=== PATIENT | female | born 1945 | race Hispanic/Latino ===

== ENCOUNTER 2019-03-19 08:53 | Inpatient (IN) | payer MEDICARE, OTHER ==
[~2019-03-19] VITALS: Ht 160 cm; Wt 76.2 kg
[~2019-03-19 08:53] MED LIST: ADALAT CC30 MG PO; ASPIR 8181 MG PO; CATAPRES0.1 MG PO; FUROSEMIDE80 MG PO; LORADINE PO; LORAZEPAM0.5 MG PO; METOPROLOL SUCC50 MG PO; MINOXIDIL10 MG PO; NOVALOG; SIMVASTATIN40 MG PO
--- OUTSIDE RECORDS SUMMARY | 2019-03-19 08:56 | XMS REPORT ---
[facility] Address Unknown Phone Unavailable Care Team Providers Care Rack Puller Name Role Phone Unavailable Unavailable Payers Payer Name Policy Type Policy Number Effective Date Expiration Date Problems This patient has no known problems. Allergies, Adverse Reactions, Alerts Allergy Name Allergy Type Status Severity Reaction(s) Onset Date Inactive Date Treating Clinician Comments No Known Allergies DA Active U 2018-10-25 00:00:00 No Known Allergies DA Active U 2016-11-06 00:00:00 Medications This patient has no known medications. Results Test Description Test Time Test Comments Text Results Atomic Results Result Comments GLUBED 2018-11-27 12:50:00 GLUBED (test code=GLUBED) 119 mg/dL 74-106 Performed by certified slurry tank operator at [facility]) [id number] 12:50:00* Test Item Value Reference Range Comments GLUBED (test code=GLUBED) 153 mg/dL 74-106 Performed by certified slurry tank operator at [facility]) [id number] 12:50:00* Test Item Value Reference Range Comments GLUBED (test code=GLUBED) 113 mg/dL 74-106 Performed by certified slurry tank operator at [facility]) [id number] 12:49:00* Test Item Value Reference Range Comments GLUBED (test code=GLUBED) 165 mg/dL 74-106 Performed by certified slurry tank operator at [facility]) [id number] 12:27:00* Test Item Value Reference Range Comments GLUBED (test code=GLUBED) 177 mg/dL 74-106 Performed by certified slurry tank operator at [facility]) [id number] 10:37:00* Test Item Value Reference Range Comments GLUBED (test code=GLUBED) 173 mg/dL 74-106 Performed by certified slurry tank operator at [facility]) [id number] 17:26:00* Test Item Value Reference Range Comments GLUBED (test code=GLUBED) 121 mg/dL 74-106 Performed by certified slurry tank operator at [facility]) BASIC METABOLIC [id number] 06:38:00* Test Item Value Reference Range Comments SODIUM (test code=NA) 141 mmol/L 136-145 POTASSIUM (test code=K) 4.4 mmol/L 3.5-5.1 CHLORIDE (test code=CL) 104.0 mmol/L 98-107 CARBON DIOXIDE (test code=CO2) 29.0 mmol/L 21-32 ANION GAP (test code=GAP) 12.4 10-20 GLUCOSE (test code=GLU) 110 mg/dL 74-106 BLOOD UREA NITROGEN (test code=BUN) 28 mg/dL 7-18 GLOMERULAR FILTRATION RATE (test code=GFR) 7 mL/min >=60 Estimated GFR by using Modified MDRD formula.Chronic kidney disease is defined as either kidney damageor GFR <60 mL/min/1.73 m2 for >3 months. CREATININE (test code=CREAT) 6.10 mg/dL 0.55-1.02 Note change in reference range due to change in reagent. BUN/CREATININE RATIO (test code=BUN/CREA) 4.6 10-20 CALCIUM (test code=CA) 8.5 mg/dL 8.5-10.1 LIPID PROFILE (CORONARY RISK)2018-10-29 06:38:00* Test Item Value Reference Range Comments TRIGLYCERIDES (test code=TRIG) 104 mg/dL 20-150 CHOLESTEROL (test code=CHOL) 90 mg/dL 0-200 CHOLESTEROL/HDL RATIO (test code=CHOLHDL) 2.0 RATIO 0-4.9 RISK ASSOCIATED WITH CHOL/HDL RATIOS: Risk Male Female1/2 AVERAGE 3.43 3.27AVERAGE 4.97 4.442X AVERAGE 9.55 7.053X AVERAGE 23.39 11.04 REFERENCE VALUE IS RELATED TO RISK LEVELS ASRECOMMENDED BY THE LAMIN. HEART, LUNG, AND BLOOD INST. HDL CHOLESTEROL (test code=HDL) 35 mg/dL 40-60 LIPOPROTEIN LDL (test code=LDL) 44 mg/dL 100-129 Reference Interval: mg/dL mmol/L Optimal <100 <2.6Near/above optimal 100-129 2.6- 3.3Borderline High 130-159 3.4-4.1High 160-189 4.1-4.9Very High >=190 >=4.9=========This LDL result is a direct measurement.========= BASIC METABOLIC [id number] 06:33:00* Test Item Value Reference Range Comments SODIUM (test code=NA) 141 mmol/L 136-145 POTASSIUM (test code=K) 4.4 mmol/L 3.5-5.1 CHLORIDE (test code=CL) 104.0 mmol/L 98-107 CARBON DIOXIDE (test code=CO2) mmol/L 21-32 ANION GAP (test code=GAP) 10-20 GLUCOSE (test code=GLU) mg/dL 74-106 BLOOD UREA NITROGEN (test code=BUN) mg/dL 7-18 GLOMERULAR FILTRATION RATE (test code=GFR) mL/min >=60 CREATININE (test code=CREAT) mg/dL 0.55-1.02 BUN/CREATININE RATIO (test code=BUN/CREA) 10-20 CALCIUM (test code=CA) mg/dL 8.5-10.1 LIPID PROFILE (CORONARY RISK)2018-10-29 06:33:00* Test Item Value Reference Range Comments TRIGLYCERIDES (test code=TRIG) mg/dL 20-150 CHOLESTEROL (test code=CHOL) mg/dL 0-200 CHOLESTEROL/HDL RATIO (test code=CHOLHDL) RATIO 0-4.9 HDL CHOLESTEROL (test code=HDL) mg/dL 40-60 LIPOPROTEIN LDL (test code=LDL) mg/dL 100-129 PROTHROMBIN [id number] 06:15:00* Test Item Value Reference Range Comments PROTHROMBIN TIME PATIENT (test code=PTP) 12.2 seconds 9.0-14.0 INTERNATIONAL NORMAL RATIO (test code=INR) 1.0 0.8-1.2 The therapeutic range for oral anticoagulant therapy formost indications is an international normalized ratio (INR)of between 2.0 and 3.0. The recommended therapeutic INRrange for various clinical situations is listed below: Clinical Situation INR range Pulmonary e mbolism treatment (2.0-3.0)Venous thrombosis treatmentVenous thrombosis prophylaxis (high risk surgery)Prevention of systemic embolism from: Acute myocardial infarction Valvular heart disease Atrial fibrillation Mechanical prosthetic heart valves (2.5-3.5) IS PATIENT ON ANTICOAGULANTS? NTHROMBOPLASTIN TIME [id number] 06:15:00* Test Item Value Reference Range Comments THROMBOPLASTIN TIME PARTIAL (test code=PTT) 29.8 seconds 25.0-36.5 IS PATIENT ON ANTICOAGULANTS? NCBC W/AUTO [id number] 06:12:00* Test Item Value Reference Range Comments WHITE BLOOD CELL (test code=WBC) 9.5 K/mm3 4.5-12.5 RED BLOOD CELL (test code=RBC) 3.76 mill/mm3 3.7-5.2 HEMOGLOBIN (test code=HGB) 11.7 gram/dL 11.5-15.5 HEMATOCRIT (test code=HCT) 38.6 % 36.0-46.0 MEAN CELL VOLUME (test code=MCV) 102.7 fL 80-98 MEAN CELL HGB (test code=MCH) 31.1 picogram 27.0-33.0 MEAN CELL HGB CONCETRATION (test code=MCHC) 30.3 gram/dL 33.0-36.0 RED CELL DISTRIBUTION WIDTH (test code=RDW) 12.8 % 11.6-16.2 RED CELL DISTRIBUTION WIDTH SD (test code=RDW-SD) 47.8 fL 37.0-51.0 PLATELET COUNT (test code=PLT) 262 K/mm3 150-450 MEAN PLATELET VOLUME (test code=MPV) 10.9 fL 6.7-11.0 NEUTROPHIL % (test code=NT%) 58.9 % 39.0-69.0 IMMATURE GRANULOCYTE % (test code=IG%) 0.4 % 0.0-5.0 LYMPHOCYTE % (test code=LY%) 23.0 % 25.0-55.0 MONOCYTE % (test code=MO%) 12.2 % 0.0-10.0 EOSINOPHIL % (test code=EO%) 4.8 % 0.0-5.0 BASOPHIL % (test code=BA%) 0.7 % 0.0-1.0 NUCLEATED RBC % (test code=NRBC%) 0.0 % 0-0 NEUTROPHIL # (test code=NT#) 5.57 K/mm3 1.8-7.7 IMMATURE GRANULOCYTE # (test code=IG#) 0.04 x10 3/uL 0-0.03 LYMPHOCYTE # (test code=LY#) 2.18 K/mm3 1.0-5.0 MONOCYTE # (test code=MO#) 1.15 K/mm3 0-0.8 EOSINOPHIL # (test code=EO#) 0.45 K/mm3 0.0-0.5 BASOPHIL # (test code=BA#) 0.07 K/mm3 0.0-0.2 NUCLEATED RBC # (test code=NRBC#) 0.00 K/mm3 0.0-0.1 CBC W/AUTO [id number] 06:09:00* Test Item Value Reference Range Comments WHITE BLOOD CELL (test code=WBC) K/mm3 4.5-12.5 RED BLOOD CELL (test code=RBC) mill/mm3 3.7-5.2 HEMOGLOBIN (test code=HGB) 11.7 gram/dL 11.5-15.5 HEMATOCRIT (test code=HCT) 38.6 % 36.0-46.0 MEAN CELL VOLUME (test code=MCV) fL 80-98 MEAN CELL HGB (test code=MCH) picogram 27.0-33.0 MEAN CELL HGB CONCETRATION (test code=MCHC) gram/dL 33.0-36.0 RED CELL DISTRIBUTION WIDTH (test code=RDW) % 11.6-16.2 RED CELL DISTRIBUTION WIDTH SD (test code=RDW-SD) fL 37.0-51.0 PLATELET COUNT (test code=PLT) K/mm3 150-450 MEAN PLATELET VOLUME (test code=MPV) fL 6.7-11.0 NEUTROPHIL % (test code=NT%) % 39.0-69.0 IMMATURE GRANULOCYTE % (test code=IG%) % 0.0-5.0 LYMPHOCYTE % (test code=LY%) % 25.0-55.0 MONOCYTE % (test code=MO%) % 0.0-10.0 EOSINOPHIL % (test code=EO%) % 0.0-5.0 BASOPHIL % (test code=BA%) % 0.0-1.0 NEUTROPHIL # (test code=NT#) K/mm3 1.8-7.7 LYMPHOCYTE # (test code=LY#) K/mm3 1.0-5.0 MONOCYTE # (test code=MO#) K/mm3 0-0.8 EOSINOPHIL # (test code=EO#) K/mm3 0.0-0.5 BASOPHIL # (test code=BA#) K/mm3 0.0-0.2 [id number] 06:02:00* Test Item Value Reference Range Comments GLUBED (test code=GLUBED) 105 mg/dL 74-106 Performed by certified slurry tank operator at [facility]) [id number] 15:38:00* Test Item Value Reference Range Comments GLUBED (test code=GLUBED) 139 mg/dL 74-106 Performed by certified slurry tank operator at [facility]) [id number] 11:14:00* Test Item Value Reference Range Comments GLUBED (test code=GLUBED) 142 mg/dL 74-106 Performed by certified slurry tank operator at [facility]) [id number] 16:50:00* Test Item Value Reference Range Comments GLUBED (test code=GLUBED) 145 mg/dL 74-106 Performed by certified slurry tank operator at [facility]) BASIC METABOLIC [id number] 09:27:00* Test Item Value Reference Range Comments SODIUM (test code=NA) 140 mmol/L 136-145 POTASSIUM (test code=K) 4.0 mmol/L 3.5-5.1 CHLORIDE (test code=CL) 104.0 mmol/L 98-107 CARBON DIOXIDE (test code=CO2) 29.0 mmol/L 21-32 ANION GAP (test code=GAP) 11.0 10-20 GLUCOSE (test code=GLU) 111 mg/dL 74-106 BLOOD UREA NITROGEN (test code=BUN) 23 mg/dL 7-18 GLOMERULAR FILTRATION RATE (test code=GFR) 9 mL/min >=60 Estimated GFR by using Modified MDRD formula.Chronic kidney disease is defined as either kidney damageor GFR <60 mL/min/1.73 m2 for >3 months. CREATININE (test code=CREAT) 4.90 mg/dL 0.55-1.02 Note change in reference range due to change in reagent. BUN/CREATININE RATIO (test code=BUN/CREA) 4.7 10-20 CALCIUM (test code=CA) 8.9 mg/dL 8.5-10.1 BASIC METABOLIC [id number] 09:10:00* Test Item Value Reference Range Comments SODIUM (test code=NA) 140 mmol/L 136-145 POTASSIUM (test code=K) 4.0 mmol/L 3.5-5.1 CHLORIDE (test code=CL) 104.0 mmol/L 98-107 CARBON DIOXIDE (test code=CO2) mmol/L 21-32 ANION GAP (test code=GAP) 10-20 GLUCOSE (test code=GLU) mg/dL 74-106 BLOOD UREA NITROGEN (test code=BUN) mg/dL 7-18 GLOMERULAR FILTRATION RATE (test code=GFR) mL/min >=60 CREATININE (test code=CREAT) mg/dL 0.55-1.02 BUN/CREATININE RATIO (test code=BUN/CREA) 10-20 CALCIUM (test code=CA) mg/dL 8.5-10.1 CBC W/AUTO [id number] 08:46:00* Test Item Value Reference Range Comments WHITE BLOOD CELL (test code=WBC) 6.3 K/mm3 4.5-12.5 RED BLOOD CELL (test code=RBC) 3.77 mill/mm3 3.7-5.2 HEMOGLOBIN (test code=HGB) 11.9 gram/dL 11.5-15.5 RESULT VERIFIED BY REPEAT ANALYSIS HEMATOCRIT (test code=HCT) 38.3 % 36.0-46.0 MEAN CELL VOLUME (test code=MCV) 101.6 fL 80-98 MEAN CELL HGB (test code=MCH) 31.6 picogram 27.0-33.0 MEAN CELL HGB CONCETRATION (test code=MCHC) 31.1 gram/dL 33.0-36.0 RED CELL DISTRIBUTION WIDTH (test code=RDW) 13.1 % 11.6-16.2 RED CELL DISTRIBUTION WIDTH SD (test code=RDW-SD) 49.0 fL 37.0-51.0 PLATELET COUNT (test code=PLT) 229 K/mm3 150-450 RESULT VERIFIED BY REPEAT ANALYSIS MEAN PLATELET VOLUME (test code=MPV) 11.0 fL 6.7-11.0 NEUTROPHIL % (test code=NT%) 54.8 % 39.0-69.0 IMMATURE GRANULOCYTE % (test code=IG%) 0.3 % 0.0-5.0 LYMPHOCYTE % (test code=LY%) 21.8 % 25.0-55.0 MONOCYTE % (test code=MO%) 16.6 % 0.0-10.0 EOSINOPHIL % (test code=EO%) 5.9 % 0.0-5.0 BASOPHIL % (test code=BA%) 0.6 % 0.0-1.0 NUCLEATED RBC % (test code=NRBC%) 0.0 % 0-0 NEUTROPHIL # (test code=NT#) 3.46 K/mm3 1.8-7.7 IMMATURE GRANULOCYTE # (test code=IG#) 0.02 x10 3/uL 0-0.03 LYMPHOCYTE # (test code=LY#) 1.38 K/mm3 1.0-5.0 MONOCYTE # (test code=MO#) 1.05 K/mm3 0-0.8 EOSINOPHIL # (test code=EO#) 0.37 K/mm3 0.0-0.5 BASOPHIL # (test code=BA#) 0.04 K/mm3 0.0-0.2 NUCLEATED RBC # (test code=NRBC#) 0.00 K/mm3 0.0-0.1 MANUAL DIFF REQUIRED (test code=MDIFF) NO AB HEPATITIS B [id number] 08:13:00* Test Item Value Reference Range Comments AB HEPATITIS B SURFACE (test code=HBSAB) Reactive () Non Reactive: Inconsistent with immunity, less than 10 mIU/mL Reactive: Consistent with immunity, greater than 9.9 mIU/mLPerformed At: [facility] [address] [id number] Manish Trevino MD Ph:[phone] BASIC METABOLIC [id number] 11:17:00* Test Item Value Reference Range Comments SODIUM (test code=NA) 139 mmol/L 136-145 POTASSIUM (test code=K) 4.9 mmol/L 3.5-5.1 CHLORIDE (test code=CL) 106.0 mmol/L 98-107 CARBON DIOXIDE (test code=CO2) 21.0 mmol/L 21-32 ANION GAP (test code=GAP) 16.9 10-20 GLUCOSE (test code=GLU) 121 mg/dL 74-106 BLOOD UREA NITROGEN (test code=BUN) 64 mg/dL 7-18 GLOMERULAR FILTRATION RATE (test code=GFR) 4 mL/min >=60 Estimated GFR by using Modified MDRD formula.Chronic kidney disease is defined as either kidney damageor GFR <60 mL/min/1.73 m2 for >3 months. CREATININE (test code=CREAT) 9.40 mg/dL 0.55-1.02 Note change in reference range due to change in reagent. BUN/CREATININE RATIO (test code=BUN/CREA) 6.8 10-20 CALCIUM (test code=CA) 8.1 mg/dL 8.5-10.1 CBC W/AUTO [id number] 11:12:00* Test Item Value Reference Range Comments WHITE BLOOD CELL (test code=WBC) 8.5 K/mm3 4.5-12.5 RED BLOOD CELL (test code=RBC) 2.85 mill/mm3 3.7-5.2 HEMOGLOBIN (test code=HGB) 9.4 gram/dL 11.5-15.5 HEMATOCRIT (test code=HCT) 28.9 % 36.0-46.0 MEAN CELL VOLUME (test code=MCV) 101.4 fL 80-98 MEAN CELL HGB (test code=MCH) 33.0 picogram 27.0-33.0 MEAN CELL HGB CONCETRATION (test code=MCHC) 32.5 gram/dL 33.0-36.0 RED CELL DISTRIBUTION WIDTH (test code=RDW) 13.5 % 11.6-16.2 RED CELL DISTRIBUTION WIDTH SD (test code=RDW-SD) 50.5 fL 37.0-51.0 PLATELET COUNT (test code=PLT) 158 K/mm3 150-450 MEAN PLATELET VOLUME (test code=MPV) 12.0 fL 6.7-11.0 NEUTROPHIL % (test code=NT%) 62.5 % 39.0-69.0 IMMATURE GRANULOCYTE % (test code=IG%) 0.4 % 0.0-5.0 LYMPHOCYTE % (test code=LY%) 18.0 % 25.0-55.0 MONOCYTE % (test code=MO%) 15.2 % 0.0-10.0 EOSINOPHIL % (test code=EO%) 3.5 % 0.0-5.0 BASOPHIL % (test code=BA%) 0.4 % 0.0-1.0 NUCLEATED RBC % (test code=NRBC%) 0.0 % 0-0 NEUTROPHIL # (test code=NT#) 5.32 K/mm3 1.8-7.7 IMMATURE GRANULOCYTE # (test code=IG#) 0.03 x10 3/uL 0-0.03 LYMPHOCYTE # (test code=LY#) 1.53 K/mm3 1.0-5.0 MONOCYTE # (test code=MO#) 1.29 K/mm3 0-0.8 EOSINOPHIL # (test code=EO#) 0.30 K/mm3 0.0-0.5 BASOPHIL # (test code=BA#) 0.03 K/mm3 0.0-0.2 NUCLEATED RBC # (test code=NRBC#) 0.00 K/mm3 0.0-0.1 MANUAL DIFF REQUIRED (test code=MDIFF) NO BASIC METABOLIC [id number] 11:10:00* Test Item Value Reference Range Comments SODIUM (test code=NA) 139 mmol/L 136-145 POTASSIUM (test code=K) 4.9 mmol/L 3.5-5.1 CHLORIDE (test code=CL) 106.0 mmol/L 98-107 CARBON DIOXIDE (test code=CO2) mmol/L 21-32 ANION GAP (test code=GAP) 10-20 GLUCOSE (test code=GLU) mg/dL 74-106 BLOOD UREA NITROGEN (test code=BUN) mg/dL 7-18 GLOMERULAR FILTRATION RATE (test code=GFR) mL/min >=60 CREATININE (test code=CREAT) mg/dL 0.55-1.02 BUN/CREATININE RATIO (test code=BUN/CREA) 10-20 CALCIUM (test code=CA) mg/dL 8.5-10.1 AG HEPAT B [id number] 09:12:00* Test Item Value Reference Range Comments AG HEPAT B SURF (test code=HBSAG) Nonreactive Index Nonreactive [id number] 03:33:00* Test Item Value Reference Range Comments TROPONIN-I (test code=TROPI) 0.050 ng/mL 0-0.045 Results called to [id number] by [email or web address] 10/26/18 [id number] results verified and read back by Nurse? Y COMMENTS TO WOOL TAMPER: COLLECT 3 HOURS AFTER PREVIOUS [id number] 00:27:00* Test Item Value Reference Range Comments TROPONIN-I (test code=TROPI) 0.044 ng/mL 0-0.045 COMMENTS TO WOOL TAMPER: COLLECT 3 HOURS AFTER PREVIOUS SAMPLEURINALYSIS [id number] 22:32:00* Test Item Value Reference Range Comments UA COLOR (test code=COLU) LIGHT YELLOW YELLOW UA APPEARANCE (test code=APPU) CLEAR CLEAR UA GLUCOSE DIPSTICK (test code=DGLUU) 50 (Trace) mg/dL NEGATIVE UA BILIRUBIN DIPSTICK (test code=BILU) NEGATIVE mg/dL NEGATIVE UA KETONE DIPSTICK (test code=KETU) NEGATIVE mg/dL NEGATIVE UA SPECIFIC GRAVITY (test code=SGU) 1.010 1.001-1.035 UA BLOOD DIPSTICK (test code=KIARA) 2+ (Moderate) mg/dL NEGATIVE UA PH DIPSTICK (test code=TAHMINA) 9.0 5.0-8.0 UA PROTEIN DIPSTICK (test code=PROU) 100 (2+) mg/dL NEGATIVE UA UROBILINIOGEN DIPSTICK (test code=URO) NEGATIVE mg/dL NEGATIVE UA NITRITE DIPSTICK (test code=CANDY) NEGATIVE NEGATIVE UA LEUKOCYTE ESTERASE W REFLEX (test code=LEUUR) TRACE Camryn/uL NEGATIVE UA WBC (test code=WBCU) 6-10 per HPF 0-5 UA RBC (test code=RBCU) >20 #/HPF 0-5 UA EPITHELIAL CELLS (test code=EPIU) FEW per HPF FEW UA MUCUS (test code=MUCU) FEW #/LPF FEW Urine Source? BladderURINALYSIS [id number] 22:27:00* Test Item Value Reference Range Comments UA COLOR (test code=COLU) LIGHT YELLOW YELLOW UA APPEARANCE (test code=APPU) CLEAR CLEAR UA GLUCOSE DIPSTICK (test code=DGLUU) 50 (Trace) mg/dL NEGATIVE UA BILIRUBIN DIPSTICK (test code=BILU) NEGATIVE mg/dL NEGATIVE UA KETONE DIPSTICK (test code=KETU) NEGATIVE mg/dL NEGATIVE UA SPECIFIC GRAVITY (test code=SGU) 1.010 1.001-1.035 UA BLOOD DIPSTICK (test code=KIARA) 2+ (Moderate) mg/dL NEGATIVE UA PH DIPSTICK (test code=TAHMINA) 9.0 5.0-8.0 UA PROTEIN DIPSTICK (test code=PROU) 100 (2+) mg/dL NEGATIVE UA UROBILINIOGEN DIPSTICK (test code=URO) NEGATIVE mg/dL NEGATIVE UA NITRITE DIPSTICK (test code=CANDY) NEGATIVE NEGATIVE UA LEUKOCYTE ESTERASE W REFLEX (test code=LEUUR) TRACE Camryn/uL NEGATIVE UA WBC (test code=WBCU) per HPF 0-5 Urine Source? BladderBASIC METABOLIC [id number] 17:51:00* Test Item Value Reference Range Comments SODIUM (test code=NA) 137 mmol/L 136-145 POTASSIUM (test code=K) 5.1 mmol/L 3.5-5.1 CHLORIDE (test code=CL) 106.0 mmol/L 98-107 CARBON DIOXIDE (test code=CO2) 24.0 mmol/L 21-32 ANION GAP (test code=GAP) 12.1 10-20 GLUCOSE (test code=GLU) 166 mg/dL 74-106 BLOOD UREA NITROGEN (test code=BUN) 62 mg/dL 7-18 GLOMERULAR FILTRATION RATE (test code=GFR) 4 mL/min >=60 Estimated GFR by using Modified MDRD formula.Chronic kidney disease is defined as either kidney damageor GFR <60 mL/min/1.73 m2 for >3 months. CREATININE (test code=CREAT) 9.30 mg/dL 0.55-1.02 Note change in reference range due to change in reagent. BUN/CREATININE RATIO (test code=BUN/CREA) 6.7 10-20 CALCIUM (test code=CA) 8.0 mg/dL 8.5-10.1 [id number] 17:51:00* Test Item Value Reference Range Comments TROPONIN-I (test code=TROPI) 0.066 ng/mL 0-0.045 Results called to [place] [id number] by [email or web address] 10/25/18 1750Critical results verified and read back by Nurse? Y BASIC METABOLIC [id number] 17:13:00* Test Item Value Reference Range Comments SODIUM (test code=NA) 137 mmol/L 136-145 POTASSIUM (test code=K) 5.1 mmol/L 3.5-5.1 CHLORIDE (test code=CL) 106.0 mmol/L 98-107 CARBON DIOXIDE (test code=CO2) mmol/L 21-32 ANION GAP (test code=GAP) 10-20 GLUCOSE (test code=GLU) mg/dL 74-106 BLOOD UREA NITROGEN (test code=BUN) mg/dL 7-18 GLOMERULAR FILTRATION RATE (test code=GFR) mL/min >=60 CREATININE (test code=CREAT) mg/dL 0.55-1.02 BUN/CREATININE RATIO (test code=BUN/CREA) 10-20 CALCIUM (test code=CA) mg/dL 8.5-10.1 [id number] 17:13:00* Test Item Value Reference Range Comments TROPONIN-I (test code=TROPI) ng/mL 0-0.045 CBC W/O [id number] 17:11:00* Test Item Value Reference Range Comments WHITE BLOOD CELL (test code=WBC) 10.3 K/mm3 4.5-12.5 RED BLOOD CELL (test code=RBC) 3.15 mill/mm3 3.7-5.2 HEMOGLOBIN (test code=HGB) 10.1 gram/dL 11.5-15.5 HEMATOCRIT (test code=HCT) 32.2 % 36.0-46.0 MEAN CELL VOLUME (test code=MCV) 102.2 fL 80-98 MEAN CELL HGB (test code=MCH) 32.1 picogram 27.0-33.0 MEAN CELL HGB CONCETRATION (test code=MCHC) 31.4 gram/dL 33.0-36.0 RED CELL DISTRIBUTION WIDTH (test code=RDW) 13.3 % 11.6-16.2 PLATELET COUNT (test code=PLT) 174 K/mm3 150-450 MEAN PLATELET VOLUME (test code=MPV) 11.3 fL 6.7-11.0 - XR CHEST 1 [id number] 16:45:00 FAX: Derrick Fletcher MD [phone] [place]: St: PRE Name: LINA JUAREZ [facility] : [birth year] Age/S: 73/F [address] [facility] Unit #: [id number] Loc: [place] [address] Phys: Derrick Fletcher MD Acct: [id number] Dis Date: Status: PRE ER PHONE #: [phone] Exam Date: 10/25/2018 1644 FAX #: [phone] Reason: CHEST PAIN EXAMS: CPT CODE: [id number] XR CHEST 1 V [id number] REASON FOR EXAM: CHEST PAIN EXAM ORDER DATE: 10/25/2018 4:23 PM Ordering Sarah: Derrick Fletcher MD PROCEDURE: - XR CHEST 1 V COMPARISON: 02/19/2018 FINDINGS: Portable AP frontal view of the chest obt ained at 4:43 PM shows clear lungs without evidence of consolidation. Ther e is no evidence of effusion. The heart size is minimally enlarged. Pulmon veronica vasculatures are unremarkable. IMPRESSION: No active disease. at 1075 Reported and signed by: Jim Mcdaniels M.D. CC: Derrick Fletcher MD Technologist: RT LIMA(R) Trnscrd Date/Time/By: 10/2018 (6353) : By: Josh Orig Print D/T: S: 10/25/2018 (5434) PAGE 1 Signed Report
--- NOTE | 2019-03-19 09:46 | Diagnostic Imaging Report ---
EXAMINATION: Head CT HISTORY: Status post fall with loss of consciousness, pain. COMPARISON: None. TECHNIQUE: Multidetector axial images were obtained without contrast from the foramen magnum to the vertex . The images were reconstructed using brain and bone algorithms. Thin section brain images were reformatted into coronal and sagittal planes. Image quality: Motion/streaking artifact limits the evaluation of the skull base and posterior cranial fossa. Dose modulation, iterative reconstruction, and/or weight based adjustment of the mA/kV was utilized to reduce the radiation dose to as low as reasonably achievable. FINDINGS: Parenchyma: 1. Cortical subcortical encephalomalacia in the bilateral posterior occipital lobes, likely the sequela from remote ischemia and/or hypertensive encephalopathy (PRES), giving the posterior distribution. 2. Few scattered, mostly juxta cortical white matter hypodensities, most likely nonspecific chronic microvascular ischemic changes. 3. Few scatter linear hyperdensities, likely vascular calcification such as in the right central sulcus region. 4. No mass or hemorrhage. No CT evidence of acute territorial vascular insult. Extra-axial spaces:No abnormal density. No extra-axial fluid collections Brain volume: Normal for age. Ventricles: No hydrocephalus or displacement. Arteries: Atherosclerotic calcification of the right vertebral and bilateral carotid arteries. Dural sinuses: No abnormal density. Extra-axial spaces: No abnormal density. Foramen magnum: No mass, Chiari malformation, or basilar invagination. Sella: No obvious mass. Paranasal/mastoid sinuses: Imaged portions unremarkable. Skull/Scalp: No lytic or blastic lesions. No fractures. IMPRESSION: 1. No acute post traumatic intracranial abnormalities, particularly no hemorrhage. 2. Mild chronic microvascular ischemic changes. 3. Bilateral occipital encephalomalacia/gliosis as detailed above. Signed by: Dr. Bella Singh M.D. on 03/19/2019 9:42 AM
--- NOTE | 2019-03-19 09:49 | Diagnostic Imaging Report ---
EXAMINATION: CT of the cervical spine HISTORY: Status post fall, trauma, LOC , pain COMPARISON: None available TECHNIQUE: Multidetector helical axial images were obtained without contrast from the foramen magnum to T1. The images were reconstructed using bone and soft tissue algorithms and were viewed in axial, sagittal and coronal planes. Dose modulation, iterative reconstruction, and/or weight based adjustment of the mA/kV was utilized to reduce the radiation dose to as low as reasonably achievable. FINDINGS: Alignment: Straightening of the cervical lordosis which may be related to muscle spasm or positional. Soft tissues: Normal Vertebrae: Normal height and density. No acute fracture, infection or neoplasm Degenerative changes: C1-C2: Normal C2-C3: Normal C3-C4: Normal C4-C5: Small disc osteophyte compresses formation, bilateral uncovertebral and facet arthrosis. No significant canal stenosis. Mild foraminal narrowing mainly on the left. C5-C6: Disc osteophyte complex formation, bilateral uncovertebral and facet arthrosis. Minimal foraminal narrowing. C6-C7: Disc osteophyte complex formation, bilateral uncovertebral and facet arthrosis. Minimal foraminal narrowing. C7-T1: Normal IMPRESSION: 1. No acute cervical spine postraumatic abnormalities. 2. Chronic degenerative changes as detailed above. Note: Acute postraumatic spinal cord, vascular or ligamentous injuries cannot adequately be assessed by CT. Signed by: Dr. Bella Singh M.D. on 03/19/2019 9:46 AM
--- NOTE | 2019-03-19 10:26 | Diagnostic Imaging Report ---
Right knee, 3 views. History: Fall. Findings: Vascular calcifications are present. There is increased suprapatellar soft tissue density. The bones are diffusely osteopenic. There is no evidence of fracture or dislocation. There are no lytic or sclerotic lesions. There is mild diffuse joint space narrowing with osteophytosis. IMPRESSION: Right knee DJD with probable joint effusion. No acute osseous abnormality. Signed by: Johnny Ohara on 03/19/2019 10:22 AM
--- NOTE | 2019-03-19 10:29 | Diagnostic Imaging Report ---
Left wrist, 3 views. History: Fall. Findings: There is diffuse soft tissue swelling. Vascular calcifications are present. The bones are diffusely osteopenic. Transverse fractures of the distal left radius and ulna are present with mild dorsal angulation of the distal fragment but no visible intra-articular extension. There are no lytic or sclerotic lesions. The joint spaces are within normal limits. IMPRESSION: Distal left radial and ulnar fractures. Signed by: Johnny Ohara on 03/19/2019 10:25 AM
--- NOTE | 2019-03-19 10:30 | Diagnostic Imaging Report ---
Pelvis, 1 view. History: Fall. Findings: Basilar classifications are present. There is diffuse osteopenia. There is no evidence of fracture or dislocation. There are no lytic or sclerotic lesions. The joint spaces are within normal limits. IMPRESSION: No acute osseous abnormality. Signed by: Johnny Ohara on 03/19/2019 10:27 AM
--- NOTE | 2019-03-19 10:34 | Diagnostic Imaging Report ---
Left forearm, 2 views. History: Fall. Findings: Vascular calcifications are present. Surgical clips are present in the anterior soft tissues. There is soft tissue swelling distally. The bones are diffusely osteopenic. Comminuted transverse fracture of the distal radius is present with mild dorsal angulation and displacement. Comminuted proximal ulnar fracture and distal ulnar fracture are also present with minimal displacement. There are no lytic or sclerotic lesions. The joint spaces are within normal limits. IMPRESSION: 1. Distal left radial fracture. 2. Proximal and distal left ulnar fractures. Signed by: Johnny Ohara on 03/19/2019 10:30 AM
--- NOTE | 2019-03-19 10:37 | Diagnostic Imaging Report ---
Left elbow, 3 views. History: Fall. Findings: Basilar classifications and is surgical clips are noted anteriorly. The bones are diffusely osteopenic. Comminuted proximal ulnar fracture is present with minimal displacement. There is slight cortical irregularity of the lateral aspect of the radial head on one view. There are no lytic or sclerotic lesions. The joint spaces are within normal limits. IMPRESSION: 1. Comminuted proximal left ulnar fracture. 2. Questionable nondisplaced left radial head fracture. Signed by: Johnny Ohara on 03/19/2019 10:33 AM
--- NOTE | 2019-03-19 10:38 | Diagnostic Imaging Report ---
Chest, 1 view, 03/19/2019. History: Fall, syncope. Comparison: None available. Findings: The cardiomediastinal silhouette and pulmonary vasculature are within normal limits for a portable exam. There is no focal consolidation or pleural effusion. Degenerative changes are noted in the right shoulder. There are no acute osseous or soft tissue abnormalities. Gastric lap band is noted. Impression: No acute cardiopulmonary abnormality. Signed by: Johnny Ohara on 03/19/2019 10:34 AM
--- NOTE | 2019-03-19 10:40 | NUR ---
STRAIGHT CATH INSERTED VIA ASEPTIC TECHNIQUE FOR UA PER MD ORDERS; URINE OUTPUT APPROX 20 CC; URINE COLLECTED AND SENT TO LAB
[2019-03-19 11:00] LABS: BASOPHILS # (AUTO) 0.1 (0.0-0.1); BASOPHILS % 0.4 % (0.0-1.0); EOSINOPHILS # (AUTO) 0.1 (0.0-0.4); EOSINOPHILS % 0.7 % (0.0-6.0); HEMATOCRIT 34.3 % (34.2-44.1); HEMOGLOBIN 11.4 g/dL (12.0-16.0); LYMPHOCYTES # (AUTO) 1.4 (1.0-3.2); LYMPHOCYTES % 11.8 % (18.0-39.1); MEAN CORPUSCULAR HEMOGLOBIN 32.9 pg (28-32); MEAN CORPUSCULAR HGB CONC 33.2 g/dL (31-35); MEAN CORPUSCULAR VOLUME 98.8 fL (81-99); MONOCYTES # (AUTO) 0.9 (0.2-0.8); MONOCYTES % 7.9 % (4.4-11.3); NEUTROPHILS # (AUTO) 9.1 (2.1-6.9); NEUTROPHILS % 78.9 % (38.7-80.0); PLATELET COUNT 232 x10e3/uL (140-360); RED BLOOD COUNT 3.47 x10e6/uL (3.6-5.1)
[2019-03-19 11:01] LABS: BILIRUBIN,URINE NEGATIVE (NEGATIVE); CLARITY,URINE CLOUDY (CLEAR); COLOR,URINE YELLOW (YELLOW); KETONES,URINE TRACE (NEGATIVE); LEUKOCYTE ESTERASE ,URINE NEGATIVE (NEGATIVE); NITRITE,URINE NEGATIVE (NEGATIVE); PROTEIN,URINE DIPSTICK 2+ (NEGATIVE); URINE UROBILINOGEN 0.2 mg/dL (0.2 - 1)
[2019-03-19 11:09] LABS: INR 0.98; PROTHROMBIN TIME 13.5 seconds (11.9-14.5)
[2019-03-19 11:10] LABS: PARTIAL THROMBOPLASTIN TIME 29.9 seconds (23.8-35.5)
[2019-03-19 11:11] LABS: AMORPHOUS SEDIMENT,URINE MODERATE (FEW); BACTERIA,URINE MODERATE /HPF; EPITHELIAL CELLS,URINE MODERATE /LPF; RBC,URINE 0-5 /HPF (0-5)
[2019-03-19 11:19] LABS: ALBUMIN 3.4 g/dL (3.5-5.0); ALBUMIN/GLOBULIN RATIO 0.9 (0.8-2.0); ANION GAP 17.8 mmol/L (8-16); CALCIUM 8.9 mg/dL (8.4-10.2); CREATININE, SERUM 7.39 mg/dL (0.57-1.11); MAGNESIUM 2.1 MG/DL (1.3-2.1); POTASSIUM 3.8 mmol/L (3.5-5.1)
[2019-03-19 11:25] LABS: CREATINE KINASE MB 3.5 ng/mL (0-5.0)
[2019-03-19] MEDS ORDERED: ONDANSETRON HCL INJ 2MG/ML 2ML 2 MG/ML VIAL IV PRN (12:45)
[2019-03-19] MEDS ORDERED: MORPHINE SULFATE 2 MG/ML SYR 1ML IV PRN (12:45)
[2019-03-19] MEDS ORDERED: MORPHINE SULFATE INJ 4 MG/ML INJ 1ML IV PRN (12:45)
[2019-03-19] MEDS ORDERED: DEXTROSE 50% SYRINGE 50 ML IV PRN (15:30)
--- NOTE | 2019-03-19 16:09 | NUR ---
received report from VEHICLE BODY BUILDER for pt being admitted. awaiting pt's arrival to the floor.
--- NOTE | 2019-03-19 16:09 | NUR ---
DR SHAFER IN ROOM WITH PT
[2019-03-19] MEDS: MORPHINE SULFATE 2 MG/ML SYR 1ML IV PRN ×2 (16:21→20:47)
[2019-03-19] MEDS: INSULIN REGULAR, HUMAN 100 UNIT/1 ML 3ML VIAL SQ SCH ×2 (16:30→20:47)
--- NOTE | 2019-03-19 16:45 | NUR ---
received to rm aaox3 no distress noted, in stable condition, humza wrap noted to left arm with sling in place, l fistula bruit auscultated, thrill palpated, laceration noted to right eyebrow. updated on poc voiced understanding, denies pain at this time, call light in reach bed alarm active, will continue to monitor
[2019-03-19] MEDS ORDERED: CLONIDINE HCL 0.2 MG TAB PO SCH (17:00)
[2019-03-19] MEDS ORDERED: CLONIDINE HCL 0.1 MG TAB PO SCH (17:00)
[2019-03-19] MEDS ORDERED: SODIUM CHLORIDE 0.9% 250ML 250 ML ONE (17:15)
[2019-03-19] MEDS: CEFTRIAXONE SOD 1 GM/NS 50 ML 50 ML IV SCH (17:23)
[2019-03-19 17:45] VITALS: BP 140/67
--- NOTE | 2019-03-19 18:04 | NUR ---
paged dr wiseman re: consult and dialysis spoke with anshu awaiting call back
--- NOTE | 2019-03-19 18:36 | Consultation ---
DATE OF CONSULTATION: 03/19/2019 HISTORY OF PRESENT ILLNESS: Ms. Chaparro Mendiola is known to me. She is a delightful 73-year-old female, underlying history of hypertension, hyperlipidemia, type 2 diabetes, diabetic kidney disease, end-stage renal disease, and history of left upper arm AV fistula. Apparently went for dialysis and slipped and fell, is not sure that she lost consciousness, but she has fractured her left wrist. The left wrist area along with forearm has been splinted. She is currently resting. She is scheduled for dialysis today. However, she is comfortable. Denies shortness of breath, nausea, vomiting, or chest pain. Discussed with Dr. Suarez. LABORATORY DATA: Labs show white count 11.5, hemoglobin 11.4 with a sodium 135, potassium 3.8, bicarbonate 26, and creatinine 7.39. ALLERGIES: NO APPARENT DRUG ALLERGIES. SOCIAL HISTORY: She does not smoke or drink. FAMILY HISTORY: Significant for diabetes. CURRENT MEDICATIONS: Morphine p.r.n. and ondansetron p.r.n. PHYSICAL EXAMINATION: GENERAL: Awake, alert, and oriented x3. Lying supine in bed. No apparent distress. VITAL SIGNS: Blood pressure 160/51, pulse rate 60, afebrile, respiratory rate 18, and oxygen saturation 100%. HEAD AND NECK: Cornea clear. Mucosa moist. LUNGS: Relatively clear. HEART: S1 and S2 audible. ABDOMEN: Otherwise, soft and nontender. EXTREMITIES: Lower extremity examination shows no edema. IMPRESSION AND PLAN: 1. Comminuted proximal left ulnar fracture, questionable nondisplaced left radial head fracture, to be seen by Dr. Jansen. 2. Volume status, stable. 3. Underlying hypertension. 4. End-stage renal disease. 5. Type 2 diabetes. Overall, stable from renal standpoint. I will postpone plans for dialysis today and dialyze tomorrow. Laboratory test noted. The patient is fairly comfortable. Discussed with Dr. Suarez. MD PETER Mcallister/MODL /[id number]
[2019-03-19 18:42] VITALS: BP 140/67
--- NOTE | 2019-03-19 18:53 | NUR ---
WALKING ROUNDS PERFORMED, RECEIVED PT LAYING FOWLERS IN BED, AAOX3, RR EVEN AND NON-LABORED, ON ROOM AIR. PT REPORTS PAIN TO (L) ARM. (L) ARM WRAPPED WITH STEPH WRAP IN SLING. LEFT PT LAYING FOWLERS IN BED, BED IN LOW LOCKED POSITION, SIDE RAILS UPX2, CALL LIGHT AND PHONE WITHIN REACH.
--- NOTE | 2019-03-19 18:54 | NUR ---
BEDSIDE REPORT GIVEN TO ONCOMING DEDENTER RN, PT RESTING IN BED, STABLE CONDITION, FAMILY AT BEDSIDE.
[2019-03-19 19:45] LABS: CREATINE KINASE MB 4.6 ng/mL (0-5.0)
[2019-03-19 20:00] VITALS: BP 148/70
[2019-03-19 20:47] VITALS: BP 148/70
[2019-03-19] MEDS: SIMVASTATIN 20 MG TAB PO SCH (20:47)
[2019-03-19] MEDS: ONDANSETRON HCL INJ 2MG/ML 2ML 2 MG/ML VIAL IV PRN (20:47)
[2019-03-19] MEDS ORDERED: SIMVASTATIN 40 MG TAB PO SCH (21:00)
[2019-03-19] MEDS ORDERED: LORAZEPAM 0.5 MG TAB PO SCH (21:00)
[2019-03-20] VITALS (10 sets, daily range): BP systolic 138–153; BP diastolic 62–68
[2019-03-20 03:38] LABS: BASOPHILS % 0.3 % (0.0-1.0); EOSINOPHILS # (AUTO) 0.1 (0.0-0.4); EOSINOPHILS % 0.9 % (0.0-6.0); HEMATOCRIT 31.3 % (34.2-44.1); HEMOGLOBIN 10.4 g/dL (12.0-16.0); LYMPHOCYTES # (AUTO) 1.3 (1.0-3.2); LYMPHOCYTES % 14.8 % (18.0-39.1); MEAN CORPUSCULAR HEMOGLOBIN 32.9 pg (28-32); MEAN CORPUSCULAR HGB CONC 33.2 g/dL (31-35); MEAN CORPUSCULAR VOLUME 99.1 fL (81-99); MONOCYTES % 10.8 % (4.4-11.3); NEUTROPHILS # (AUTO) 6.5 (2.1-6.9); NEUTROPHILS % 72.9 % (38.7-80.0); PLATELET COUNT 222 x10e3/uL (140-360); RED BLOOD COUNT 3.16 x10e6/uL (3.6-5.1); RED CELL DISTRIBUTION WIDTH 14.1 % (11.7-14.4)
[2019-03-20 03:56] LABS: ALBUMIN 2.9 g/dL (3.5-5.0); ALBUMIN/GLOBULIN RATIO 0.9 (0.8-2.0); ANION GAP 15.2 mmol/L (8-16); CALCIUM 8.3 mg/dL (8.4-10.2); CHOL/HDL RATIO 3.5 (3.0-3.6); CREATININE, SERUM 9.12 mg/dL (0.57-1.11); POTASSIUM 4.2 mmol/L (3.5-5.1)
[2019-03-20] MEDS: CEFTRIAXONE SOD 1 GM/NS 50 ML 50 ML IV SCH ×2 (04:19→22:48)
[2019-03-20 04:22] LABS: CREATINE KINASE MB 2.7 ng/mL (0-5.0)
[2019-03-20] MEDS: INSULIN REGULAR, HUMAN 100 UNIT/1 ML 3ML VIAL SQ SCH ×4 (07:26→21:00)
[2019-03-20] MEDS ORDERED: ACETAMINOPHEN 325 MG TAB PO PRN (07:30)
[2019-03-20] MEDS ORDERED: HYDRALAZINE HCL 20 MG/ML VIAL IV PRN (07:30)
[2019-03-20] MEDS ORDERED: FAMOTIDINE 20 MG TAB PO SCH (07:30)
[2019-03-20] MEDS: FAMOTIDINE 20 MG TAB PO SCH ×2 (08:17→16:21)
[2019-03-20] MEDS ORDERED: MELATONIN 5 MG TABLET PO PRN (08:30)
[2019-03-20] MEDS ORDERED: NIFEDIPINE CR 30 MG TAB PO SCH (09:00)
[2019-03-20] MEDS ORDERED: NIFEDIPINE PO SCH (09:00)
[2019-03-20] MEDS ORDERED: METOPROLOL SUCCINATE 50 MG TAB XL PO SCH (09:00)
[2019-03-20] MEDS ORDERED: AMLODIPINE BESYLATE 10 MG TAB PO SCH (09:00)
--- NOTE | 2019-03-20 11:00 | Consultation ---
DATE OF CONSULTATION: 03/20/2019 Cardiology Consultation REASON FOR CONSULTATION: Syncope, suspected. HISTORY OF PRESENT ILLNESS: Ms. Mayfield is a pleasant 73-year-old woman with history of hypertension, dyslipidemia, type 2 diabetes mellitus, end-stage renal disease on scheduled dialysis via left upper extremity AV fistula, presents to the hospital after she fell when on her way to dialysis after getting out of her car, locking it and starting ambulation. She does not recall how she fell down and she does not recall clear loss of consciousness. However, she was alone at that time. She denies any associated shortness of breath, lightheadedness, palpitations, or chest discomfort. She has no other complaints at this time. She was placed on telemetry so far remaining in normal sinus rhythm. Her serial cardiac enzymes were performed and all within normal limits so far a total of three sets. Her initial blood pressure was 144/48 and initial heart rate was 59. She has currently no new complaints. REVIEW OF SYSTEMS: A 12-system review is negative except for as noted above. PAST MEDICAL HISTORY: Significant for hypertension, dyslipidemia, end-stage renal disease, morbid obesity, status post negative recent coronary angiogram performed at an outside hospital. ALLERGIES: NO KNOWN DRUG ALLERGIES. SOCIAL HISTORY: No smoking, alcohol, or drugs. FAMILY HISTORY: Significant for diabetes. MEDICATIONS: Include: 1. Simvastatin 10 mg at bedtime. 2. Amlodipine 10 mg daily. 3. Hydralazine 10 mg q.4 hours p.r.n. LABORATORY STUDIES: Sodium 133, potassium 4.2, chloride 96, bicarbonate 26, BUN 47, creatinine 9.1, glucose 116, calcium 8.3, total bilirubin 0.4. AST 21, ALT 19, alkaline phosphatase 207, total protein 6.3, albumin 2.9, triglycerides 76, total cholesterol 129, LDL 77, HDL 37, INR 0.9. White blood cells 8.9, hemoglobin 10.4, platelets 222. Brain CT no acute posttraumatic intracranial abnormalities, particularly no hemorrhage, mild chronic microvascular ischemic changes, bilateral occipital encephalomalacia/gliosis. PHYSICAL EXAMINATION: VITAL SIGNS: Temperature 96.3, heart rate 60, respiratory rate 16, blood pressure 147/68, O2 saturation 99% on room air. GENERAL: No acute distress, alert. HEENT: Has ecchymosis above the right eye. NECK: No JVD or carotid bruit. CHEST: Clear to auscultation bilaterally. CARDIOVASCULAR: Regular rate and rhythm. Normal S1, S2. No S3, no S4. No murmurs, no rubs. ABDOMEN: Soft, nontender, nondistended. EXTREMITIES: No cyanosis, clubbing, or edema to lower extremities. Left upper extremity AV fistula. Studies as described above. ASSESSMENT: 1. Fall of unclear, associated syncope. 2. Comminuted proximal left ulnar fracture and questionable nondisplaced left radial head fracture, being evaluated by Dr. Jansen. 3. End-stage renal disease. 4. Type 2 diabetes mellitus. 5. Hypertension. 6. Dyslipidemia. RECOMMENDATIONS: 1. Obtain echocardiogram. 2. Monitor blood pressure and check orthostatics. 3. Continue current cardiovascular medications. 4. Please keep on telemetry. 5. Plans for Orthopedic Surgery. We will provide further recommendations once echocardiogram available for review. MD JAHAIRA Zavala/ELEAZAR /[id number]
[2019-03-20 11:40] LABS: CREATINE KINASE MB 3.2 ng/mL (0-5.0)
[2019-03-20] MEDS: MORPHINE SULFATE 2 MG/ML SYR 1ML IV PRN (13:08)
--- NOTE | 2019-03-20 13:29 | NUR ---
ATTEMPTED TO DO SPA, PT IS MEDCIATED AND UNABLE TO ANSWER QUESTIONS AT THIS TIME
--- NOTE | 2019-03-20 14:22 | NUR ---
CALLED [facility] . MD LOPEZ ORDERED HD FOR TODAY
--- NOTE | 2019-03-20 15:21 | Consultation ---
DATE OF CONSULTATION: 03/19/2019 CHIEF COMPLAINT: Left arm pain. HISTORY OF PRESENT ILLNESS: The patient is a 73-year-old lady, who fell. She noted immediate onset of left arm pain. She was brought into the emergency room, where she was noted to have 2 fractures in her arm. Orthopedic consultation was requested. PAST MEDICAL HISTORY: Hypertension, diabetes, cardiac disease, end-stage renal disease. PREVIOUS SURGERIES: Cholecystectomy, hysterectomy, appendectomy, ORIF of her right wrist and dialysis ports. ALLERGIES: NONE. MEDICATIONS: See chart. SOCIAL HISTORY: She does not smoke or drink. She lives with her son. She gets around with a walker. PHYSICAL EXAMINATION: GENERAL: She is a frail 73-year-old lady. EXTREMITIES: She is in a sugar-tong splint of her left upper extremity. Proximal to the splint, there is a dialysis shunt. Distal neurovascular exam is normal. There is discomfort to palpation. LABORATORY STUDIES: X-rays show renal osteodystrophy with a displaced olecranon and distal radius fracture. IMPRESSION: Left olecranon and distal radius radial shaft fracture. The findings and options were discussed with the patient and multiple family members. She has significant comorbidities including renal osteodystrophy. I explained how this impacts surgical stabilization of broken bones. Her bones are brittle and weak. Screw fixation will not be guaranteed to hold. The option of treatment would be to leave it alone without surgery. Both of these fractures are displaced and would likely go into nonunions. Simply stated, there is no good answer. I have recommended open reduction with internal fixation. This will need to be timed around her dialysis. The family wishes to think about it. We will discuss with them further and do this electively when the swelling is improved and her medical conditions were optimized. Thank you for the consultation. Maury Jansen MD DR/ELEAZAR /[id number]
--- NOTE | 2019-03-20 17:22 | NUR ---
NEW IV STARTED TO THE RIGHT AC 20 G. HD NURSE HAS A ARRIVED WILL RESCHEDULE IV FOR TONIGHT AFTER TREATMENT
[2019-03-20] MEDS ORDERED: SODIUM CHLORIDE 0.9% 1000ML 2,000 ML ONE (17:24)
[2019-03-20] MEDS ORDERED: SODIUM CHLORIDE 0.9% 250ML 500 ML IV PRN (18:15)
[2019-03-20] MEDS ORDERED: SODIUM CHLORIDE 0.9% 1000ML 2,000 ML IV PRN (18:15)
--- NOTE | 2019-03-20 19:15 | NUR ---
BED SIDE SHIFT REPORT TAKEN FROM MORNING CIPRIANO IN THE BED.DIALYSIS CONTINUING.STABLE CONDITION.
[2019-03-20] MEDS: SIMVASTATIN 20 MG TAB PO SCH (22:49)
[2019-03-21] VITALS (8 sets, daily range): BP systolic 123–173; BP diastolic 59–68
[2019-03-21] MEDS: ONDANSETRON HCL INJ 2MG/ML 2ML 2 MG/ML VIAL IV PRN (00:10)
[2019-03-21] MEDS: MORPHINE SULFATE 2 MG/ML SYR 1ML IV PRN (00:12)
--- NOTE | 2019-03-21 00:20 | NUR ---
DIALYSIS COMPLETED .STABLE CONDITION.
--- NOTE | 2019-03-21 03:00 | NUR ---
BLOOD JEFF AND SENT TO THE LAB.PT TOLERATED WELL.
[2019-03-21 03:54] LABS: BASOPHILS % 0.4 % (0.0-1.0); EOSINOPHILS # (AUTO) 0.2 (0.0-0.4); EOSINOPHILS % 2.3 % (0.0-6.0); HEMATOCRIT 33.6 % (34.2-44.1); HEMOGLOBIN 11.1 g/dL (12.0-16.0); MEAN CORPUSCULAR HEMOGLOBIN 32.8 pg (28-32); MEAN CORPUSCULAR VOLUME 99.4 fL (81-99); MONOCYTES # (AUTO) 1.1 (0.2-0.8); NEUTROPHILS # (AUTO) 6.7 (2.1-6.9); NEUTROPHILS % 73.9 % (38.7-80.0); PLATELET COUNT 239 x10e3/uL (140-360); RED BLOOD COUNT 3.38 x10e6/uL (3.6-5.1)
[2019-03-21 04:10] LABS: ANION GAP 15.4 mmol/L (8-16); CALCIUM 8.5 mg/dL (8.4-10.2); CREATININE, SERUM 4.69 mg/dL (0.57-1.11); POTASSIUM 4.4 mmol/L (3.5-5.1)
[2019-03-21 04:32] LABS: FREE T4 (FREE THYROXINE) 1.07 ng/dL (0.8-1.8); THYROID STIMULATING HORMONE 8.035 uIU/mL (0.350-4.940)
[2019-03-21] MEDS ORDERED: LEVOTHYROXINE SODIUM 25 MCG TABLET PO SCH (06:00)
--- NOTE | 2019-03-21 07:00 | NUR ---
Bed side shift report given to the oncoming rn.stable condition.
[2019-03-21] MEDS: INSULIN REGULAR, HUMAN 100 UNIT/1 ML 3ML VIAL SQ SCH ×3 (07:30→16:30)
--- NOTE | 2019-03-21 08:30 | NUR ---
MD CURRY STATES PT CAME COME BACK FOR OUTPATIENT SX ON MONDAY OF NEXT WEEK. PT CAN HOME HOME UPON ORTHO STANDPOINT NOTIFIED JOVAN. LIBRARY SERIALS ASSISTANT ORDERS HH WITH PT AT THIS TIME PT EVAL WILL BE DONE TODAY
[2019-03-21] MEDS: FAMOTIDINE 20 MG TAB PO SCH (08:39)
[2019-03-21] MEDS ORDERED: NIFEDIPINE CR 30 MG TAB PO SCH (09:00)
--- NOTE | 2019-03-21 09:51 | NUR ---
PT CHOICE FORM SIGNED FOR [facility] WILL FAX CLINICALS WHEN GET PT NOTES
[2019-03-21] MEDS: CEFTRIAXONE SOD 1 GM/NS 50 ML 50 ML IV SCH (10:17)
[2019-03-21] MEDS ORDERED: TYLENOL WITH C1 EACH PO (10:42)
[2019-03-21] MEDS ORDERED: NIFEDIPINE ER30 M1 PO (10:47)
[2019-03-21] MEDS ORDERED: LEVOTHYROXINE25 MCG PO (10:47)
--- NOTE | 2019-03-21 16:10 | NUR ---
FAXED CLINICALS TO [facility] [phone] FAXED HEMIWALKER ORDER TO [facility] [phone] WILL BE DELIVERED TO HOME WILL FAX PT NOT TO [facility] EMERGENCY DEPARTMENT WHEN I GET IT.
--- NOTE | 2019-03-21 16:24 | NUR ---
[facility] DOES NOT HAVE ANY HEMIWALKERS, CALLED [facility] [phone] THEY CAN PROCESS AND DELIVER TOMORROW, LET NURSE KNOW.
[2019-03-21] MEDS ORDERED: ONDANSETRON HCL 4 MG ORAL DISINTEGRATING TAB PO PRN (17:15)
--- NOTE | 2019-03-21 17:15 | NUR ---
pt off unit to home
--- NOTE | 2019-03-21 19:07 | Progress Note ---
DATE: 03/21/2019 Cardiology Progress Note SUBJECTIVE: Denies chest pain or shortness of breath. Denies lightheadedness or syncope. OBJECTIVE: VITAL SIGNS: Temperature 97.4, heart rate 71, blood pressure 123/59, respiratory rate 18, and O2 saturation 97%. GENERAL: In no acute distress, alert. NECK: No JVD. CHEST: Clear to auscultation. CARDIOVASCULAR: Regular rate and rhythm, normal S1, S2. No S3 or S4. ABDOMEN: Soft, nontender. EXTREMITIES: Trace edema, warm distal lower extremities. CARDIOVASCULAR MEDICATIONS: Reviewed, 1. Nifedipine 30 mg daily. 2. Simvastatin 10 mg at bedtime. 3. Hydralazine 10 mg q.4 hours. STUDIES: Reviewed. Sodium 139, potassium 4.4, chloride 98, bicarbonate 30, BUN 17, creatinine 4.6, and glucose 117. White blood cells 9, hemoglobin 11.1, platelets 239. INR 0.9. AST 21, ALT 19, total bilirubin 0.4, and alkaline phosphatase 207. ASSESSMENT: A 73-year-old woman with: 1. Mechanical fall versus syncope with resultant left upper extremity fracture versus ulnar and radius. 2. Hypertension. 3. Diabetes mellitus. 4. Chronic diastolic heart failure. RECOMMENDATIONS: 1. Echocardiogram, has preserved left ventricular systolic function and mild LVH. 2. Had previous coronary assessment without intervention within the last 6-12 months. 3. Denies any new cardiovascular complaint. 4. Has moderate risk for adverse cardiovascular outcomes with noncardiac surgery. 5. Outpatient followup advised in 1 to 2 weeks post discharge. MD JAHAIRA Zavala/RANGELL /[id number]
[2019-03-26] MEDS ORDERED: GLYBURIDE5 MG PO (09:35)
[2019-03-26] MEDS ORDERED: STOMACH MED (09:35)
[2019-03-26] MEDS ORDERED: BP MED PO (09:35)
[2019-03-26] MEDS ORDERED: CYMBALTA30 MG PO (09:36)
[2019-03-26] MEDS ORDERED: METOPROLOL TART50 MG PO (09:36)
--- NOTE | 2019-03-26 12:34 | NUR ---
SIGNATURE LET ME KNOW PT REFUSED HOME HEALTH, DAUGHTER STATES " SHE HASN'T SEEN A PCP IN 4YEARS SO DOESN'T NEED"
--- NOTE | 2019-04-09 08:08 | Discharge Summary ---
ADMISSION DIAGNOSES: Multiple fractures of the left forearm, hypertension with end-stage renal disease, type 2 diabetes with end-stage renal disease. DISCHARGE DIAGNOSES: Multiple fractures of the left forearm, hypertension with end-stage renal disease, type 2 diabetes with end-stage renal disease, rule out urinary tract infection, hypothyroidism. HISTORY: The patient has a history of hypertension, type 2 diabetes, end-stage renal disease, on dialysis. SURGICAL HISTORY: Hysterectomy, cholecystectomy, appendectomy, AV fistula. FAMILY HISTORY: Hypertension, type 2 diabetes. SOCIAL HISTORY: Noncontributory. HOSPITAL COURSE: A 73-year-old female, fell due to lightheadedness while going into hemodialysis. She now complains of severe left forearm pain. On admission, CT of the brain was negative. CT of the C-spine was negative. Chest x-ray was negative. X-ray of the left elbow showed comminuted proximal left ulnar fracture and questionable nondisplaced left radial head fracture. Forearm x-ray showed proximal and distal left ulna fractures as well as distal left radial fracture. Ortho was consulted. Ortho spoke with the patient and family regarding history and risks associated with them. Left forearm was placed in a splint. They decided to move forward with an ORIF after discharge. So, the patient was given new prescriptions for pain medication plus levothyroxine and nifedipine. She will follow up with primary care in 1 to 2 weeks and Orthopedics in 2 days. The patient and family understand discharge instructions and agreed to plan. The patient's metoprolol was discontinued at the time of discharge due to the bradycardia. Cardiology was consulted, who agreed with the plan. Vital signs stable, the patient afebrile. Dictated by Alecia Marcus NP MD DANIELA Eagle/MODL /[id number]
== END 2019-03-21 17:10 | disposition home health service (06) | DRG 562 ==
LOC: ER 08:53 → ERHOLD 12:31 → MED/SURG 16:48
PROVIDERS: ADMIT Internal Medicine; ATTEND Internal Medicine
PROC: 5A1D70Z Performance of Urinary Filtration, Intermittent, Less than 6 Hours Per Day (ICD-10-PCS; principal; 2019-03-20)
DX: S52.022A Displaced fracture of olecranon process without intraarticular extension of left ulna, initial encounter for closed fracture (principal); N18.6 End stage renal disease; N39.0 Urinary tract infection, site not specified; I13.2 Hypertensive heart and chronic kidney disease with heart failure and with stage 5 chronic kidney disease, or end stage renal disease; I50.32 Chronic diastolic (congestive) heart failure; S52.322A Displaced transverse fracture of shaft of left radius, initial encounter for closed fracture; R55 Syncope and collapse; E11.22 Type 2 diabetes mellitus with diabetic chronic kidney disease; Z99.2 Dependence on renal dialysis; E03.9 Hypothyroidism, unspecified; K21.9 Gastro-esophageal reflux disease without esophagitis; E78.5 Hyperlipidemia, unspecified; Z83.3 Family history of diabetes mellitus; Z82.49 Family history of ischemic heart disease and other diseases of the circulatory system; W01.0XXA Fall on same level from slipping, tripping and stumbling without subsequent striking against object, initial encounter; Y93.01 Activity, walking, marching and hiking; Y92.89 Other specified places as the place of occurrence of the external cause; S05.11XA Contusion of eyeball and orbital tissues, right eye, initial encounter; S80.01XA Contusion of right knee, initial encounter; N25.0 Renal osteodystrophy; R00.1 Bradycardia, unspecified; Z79.82 Long term (current) use of aspirin; Z79.84 Long term (current) use of oral hypoglycemic drugs
CPT/HCPCS: 36415; 70450; 71045; 72125; 72170; 80048; 80053; 80061; 81001; 82550; 82553; 82948; 83036; 83735; 84439; 84443; 84484; 85025; 85610; 85730; 86704; 86706; 87086; 87340; 93005; 93306; 99285; J0696; J1817; J2270; J2405; J7030; J7050

== ENCOUNTER → 2019-03-26 | Day surgery (SDC) | payer MEDICARE ==
[~2019-03-26] MED LIST changes: +ACETAMINOPHEN 1000 MG/100 ML 100 ML IV ONE; +BACITRACIN 50,000 UNIT VIAL ONE; +BP MED PO; +BUPIVACAINE HCL 0.5% INJ 30 ML VIAL INJ ONE; +CEFAZOLIN SOD 1 GM/NS 50ML 50 ML IV ONE; +CYMBALTA30 MG PO; +DEXAMETHASONE SOD PHOS INJ 4 MG/ML VIAL ONE; +EPHEDRINE SULFATE INJ 50 MG/10 ML SYR ONE; +FENTANYL CITRATE/PF 100MCG/2 ML INJ ONE; +GLYBURIDE5 MG PO; +LEVOTHYROXINE25 MCG PO; +LIDOCAINE HCL 2% LOCAL INJ 5 ML SDV VIAL INJ ONE; +METOPROLOL TART50 MG PO; +MIDAZOLAM HCL 2 MG/2 ML VIAL ONE; +NIFEDIPINE ER30 M1 PO; +ONDANSETRON HCL INJ 2MG/ML 2ML 2 MG/ML VIAL ONE; +PROPOFOL IV EMULSION 10 MG/ML 20 ML VIAL ONE; +SEVOFLURANE INHAL SOLN 250 ML PEN BTL ONE; +SODIUM CHLORIDE 0.9% 500ML 500 ML ONE; +STOMACH MED; +TYLENOL WITH C1 EACH PO
[2019-03-26 09:21] LABS: INR 1.01; PROTHROMBIN TIME 13.8 seconds (11.9-14.5)
[2019-03-26 09:22] LABS: PARTIAL THROMBOPLASTIN TIME 30.8 seconds (23.8-35.5)
--- NOTE | 2019-03-26 12:37 | NUR ---
DAUGHTER REFUSED HOME HEALTH FROM VISIT LAST WEEK AND DAUGHTER HAS STATED SHE WONT NEED.
[2019-03-26 12:45] VITALS: BP 151/67
--- NOTE | 2019-03-27 18:10 | Operative Report ---
DATE OF PROCEDURE: 03/26/2019 SURGEON: Maury Jansen MD MERCHANDISE DISPLAYER: Jett Brower, certified PA. PREOPERATIVE DIAGNOSIS: Left radius and left olecranon fracture. POSTOPERATIVE DIAGNOSIS: Left radius and left olecranon fracture. PROCEDURE: Open reduction and internal fixation, left radius and left olecranon process. INDICATIONS: The patient is a 73-year-old lady, who has a low velocity fracture of her left olecranon process and left distal radius. She is on dialysis and has renal osteodystrophy. Her dialysis shunt is on the left proximal arm. The findings and options have been discussed. We plan on open reduction with internal fixation. The risks and benefits have been carefully explained on several occasions to both the patient and multiple family members. They state they understand and wish to proceed. PROCEDURE IN DETAIL: The patient was brought to the operating room and placed under general anesthetic. Her left upper extremity was prepped and draped in a sterile manner. A preoperative time-out was performed. Initial attention was directed towards the olecranon process. No tourniquet could be used because of the vascular shunt. The shunt was palpated for a bruit both before and after the surgery. An incision was made over the olecranon process. This was carried down distally. Minimal soft tissue disruption had occurred at the time of the fracture. A precontoured Hernandez and Nephew olecranon plate was placed onto the proximal ulna and spanning the fracture site. This was fixed into place with a combination of one compression screw and all additional locking screws. Intraoperative x-ray confirmed satisfactory reduction and positioning of the hardware. This wound was irrigated and reapproximated with 2-0 Vicryl. The skin was closed with vipin. Attention was then directed towards the distal radius. A volar approach was made to the radius through the floor of the flexor carpi radialis tendon sheath. Blunt dissection was carried down to carefully expose the fracture site. The patient had a previous distal radius fracture and there was some preexisting malunion of the fracture of the distal radius. A second periarticular locking plate was placed across the distal radius. This was locked again with a combination of one compression screw and all additional locking screws. Intraoperative x-ray showed some dorsal displacement of the fracture that was felt to be acceptable. Our intent was to stabilize the fracture as best as possible. The wound was irrigated and closed. Once again, subcuticular Vicryl and vipin were used. A sterile bandage was applied. A large posterior splint combined with a sugar-tong splint was applied. Access to the vascular shunt was preserved. The patient was extubated and transported to the recovery room in stable condition. Blood loss was less than 50 mL. All needle and sponge counts were correct. Maury Jansen MD DR/ELEAZAR /[id number]
== END | disposition home or self-care (01) ==
LOC: OR 08:09
PROVIDERS: ATTEND Specialist
DX: S52.532A Colles' fracture of left radius, initial encounter for closed fracture (principal); S52.022A Displaced fracture of olecranon process without intraarticular extension of left ulna, initial encounter for closed fracture; E03.9 Hypothyroidism, unspecified; E11.22 Type 2 diabetes mellitus with diabetic chronic kidney disease; I13.2 Hypertensive heart and chronic kidney disease with heart failure and with stage 5 chronic kidney disease, or end stage renal disease; I50.9 Heart failure, unspecified; N18.6 End stage renal disease; W19.XXXA Unspecified fall, initial encounter; Y92.89 Other specified places as the place of occurrence of the external cause; Z79.82 Long term (current) use of aspirin; Z79.84 Long term (current) use of oral hypoglycemic drugs; Z99.2 Dependence on renal dialysis; Z68.32 Body mass index [BMI] 32.0-32.9, adult
CPT/HCPCS: 24685; 25607; 36415; 82948; 84132; 85610; 85730; C1713 ×11; J0131; J0690; J1100; J2001; J2250; J2405; J2704; J3010; J7040